=== PATIENT | male | born 1990 ===

== ENCOUNTER 2021-10-20 06:23 | Day surgery (SDC) | payer OTHER ==
[2021-10-20] MEDS ORDERED: DUI500 PO (14:45)
[2021-10-20] MEDS ORDERED: PERCOCET 5-3251 EACH PO (14:45)
[2021-10-20] MEDS ORDERED: ALEVE220 M1 PO (14:45)
== END 2021-10-20 15:30 | disposition home or self-care (01) ==
LOC: CIR.AMB 06:23
PROVIDERS: ATTEND Orthopaedic Surgery
DX: S52.302A Unspecified fracture of shaft of left radius, initial encounter for closed fracture (principal); S50.12XA Contusion of left forearm, initial encounter